=== PATIENT | male | born 1960 | race Caucasian/White ===

== ENCOUNTER 2017-03-19 07:51 | Day surgery (SDC) | payer OTHER ==
[2017-03-19] MEDS ORDERED: BUPIVACAINE 0.25% W/EPI MPF 30ML VIAL IVP ONE (14:29)
[2017-03-19] MEDS ORDERED: MIDAZOLAM HCL 2MG/2ML VIAL IV ONE (16:21)
[2017-03-19] MEDS ORDERED: PROPOFOL 10 MG/ML VIAL IV ONE (16:21)
[2017-03-19] MEDS ORDERED: LIDOCAINE 2% MDV (20MG/ML) 20ML VIAL IV ONE (16:21)
[2017-03-19] MEDS ORDERED: FENTANYL PF 100MCG/2ML VIAL IV ONE (16:21)
--- NOTE | 2017-03-26 10:55 | Operative Note ---
DATE OF SERVICE: 03/19/2017. DATE OF SURGERY: 03/19/2017. Surgeon: Jared George DO. REFERRING PHYSICIAN: Gracy Burroughs M.D. PREOPERATIVE DIAGNOSIS: Back mass. POSTOPERATIVE DIAGNOSIS: Back mass. OPERATION: Excision of upper back mass. PROCEDURE: The patient is a 56-year-old male brought to the operating room and placed in the supine position. Local and IV sedation was given per Department of Anesthesia. Patient rotated into right lateral position. His back was prepped and draped in the usual fashion. The area around the mass was anesthetized with a total of 5 mL of 1% Sensorcaine with epinephrine. An elliptical incision was made. This was carried down to the subcutaneous tissue. Cautery was used to excise the mass from the surrounding tissue. This was then passed off the field. This did measure 3 x 2 cm into the subcu. Wound was then irrigated and closed with 3 and 4 Vicryl. He was taken to the recovery room in satisfactory condition. Permanent pathology pending. [facility]
== END 2017-03-19 11:40 | disposition home or self-care (01) ==
LOC: SUR 07:51
PROVIDERS: ATTEND Surgery
DX: L72.0 Epidermal cyst (principal); I34.1 Nonrheumatic mitral (valve) prolapse; I10 Essential (primary) hypertension
CPT/HCPCS: 11404; 12032; 00300; J3010

== ENCOUNTER 2019-04-11 08:46 | Day surgery (SDC) | payer OTHER ==
[2019-04-11] MEDS ORDERED: PROPOFOL 10 MG/ML VIAL IV ONE (08:47)
[2019-04-11] MEDS ORDERED: LIDOCAINE 2% MDV (20MG/ML) 20ML VIAL IV ONE (08:47)
--- NOTE | 2019-04-17 13:50 | Operative Note ---
DATE OF SERVICE: 04/11/2019. DATE OF SURGERY: 04/11/2019. REQUESTING PROVIDER: Dianne Wells DO. SURGEON: Lori Casanova MD. PROCEDURE: COLONOSCOPY. INDICATION FOR PROCEDURE: This is a 59-year-old male with history of colon polyps, who presented for surveillance colonoscopy. POSTOPERATIVE DIAGNOSES: 1. Normal colonic mucosa with no neoplastic or obstructive lesions. 2. Grade 1 internal hemorrhoids. SEDATION: Sedation is per Anesthesia. Pulse oximetry was monitored through the duration of the procedure to maintain O2 saturation of 90% or greater. Supplemental oxygen was administered via nasal cannula. Cardiac and vital signs were monitored throughout the duration of the procedure and they were stable. PROCEDURE: The procedure of colonoscopy, risks and alternatives to the procedure, including the risks of bleeding and perforation among others, were explained to the patient. Patient voiced understanding and agrees to have the procedure done. Physical examination was performed and the patient was found stable for sedation. The patient was then placed in the left lateral position and sedation was initiated. Digital rectal exam was performed and showed some external hemorrhoids with no palpable rectal masses. A lubricated Olympus PCF1 80AL colonoscope was then inserted into the rectum and under direct visualization was advanced to the cecum without difficulty. The ileocecal valve and appendiceal orifice were identified and photographed. The colonic mucosa was carefully examined upon introduction of the colonoscope. There were no lesions noted. The colonoscope was then withdrawn very carefully, re-examining the colonic mucosal surfaces. No other lesions were noted. In the rectum, retroflexion maneuver was performed and Grade 1 internal hemorrhoids were noted. The bowel preparation was fair. The colonoscope was then withdrawn and the procedure was terminated. The patient tolerated the procedure well without immediate complications. He remained in stable vital signs and was transferred to the recovery room. PLAN AND RECOMMENDATIONS: 1. Patient is to be on a high fiber diet. 2. He is to have a repeat colonoscopy for surveillance in 5 years. Thank you for allowing me to participate in the care of your patient. [facility]
== END 2019-04-11 10:25 | disposition home or self-care (01) ==
LOC: HOP 08:46
PROVIDERS: ATTEND Internal Medicine Gastroenterology
DX: Z12.11 Encounter for screening for malignant neoplasm of colon (principal); Z86.010 Personal history of colon polyps; I10 Essential (primary) hypertension
CPT/HCPCS: 00812; G0105